=== PATIENT | male | born 1945 | race Caucasian/White ===

== ENCOUNTER 2022-08-10 09:48 | Outpatient (CLI) | payer MEDICARE | END 2022-08-10 09:49 | disposition home or self-care (01) | LOC: CSHRAD 09:48 | PROVIDERS: ATTEND Nurse Practitioner Family | DX: R13.10 Dysphagia, unspecified (principal); R63.30 Feeding difficulties, unspecified; R05.9 Cough, unspecified | CPT/HCPCS: 74230 ==